=== PATIENT | male | born 1945 | race Caucasian/White ===

== ENCOUNTER → 2016-09-07 | Outpatient (RCR) | payer MEDICARE, OTHER | LOC: M CR 09-05 12:15 | PROVIDERS: ATTEND Internal Medicine Cardiovascular Disease | DX: Z51.89 Encounter for other specified aftercare (principal); Z95.2 Presence of prosthetic heart valve ==

== ENCOUNTER 2016-10-05 12:57 | Outpatient (RCR) | payer MEDICARE, OTHER | END 2016-10-07 | LOC: M CR 12:57 | PROVIDERS: ATTEND Internal Medicine Cardiovascular Disease | DX: Z51.89 Encounter for other specified aftercare (principal); Z95.2 Presence of prosthetic heart valve ==

== ENCOUNTER → 2016-11-07 | Outpatient (RCR) | payer MEDICARE, OTHER | LOC: M CR 10-08 08:28 | PROVIDERS: ATTEND Internal Medicine Cardiovascular Disease | DX: Z51.89 Encounter for other specified aftercare (principal); Z92.29 Personal history of other drug therapy ==

== ENCOUNTER 2016-11-28 13:01 | Outpatient (RCR) | payer MEDICARE, OTHER | END 2016-12-07 | LOC: M CR 13:01 | PROVIDERS: ATTEND Internal Medicine Cardiovascular Disease | DX: Z51.89 Encounter for other specified aftercare (principal); Z95.2 Presence of prosthetic heart valve ==

== ENCOUNTER 2017-05-09 12:00 | Day surgery (SDC) | payer MEDICARE, OTHER ==
[~2017-05-09] VITALS: Ht 168.9 cm; Wt 94.3 kg
[~2017-05-09 12:00] MED LIST: AMLO5TAB2 PO; ASPI81TA85 PO; ATOR1TAB19 PO; LISI-538 PO; MULTTAB50 PO; PROPOFOL 200 MG/20 ML VIAL As Ordered ONE; RANI150C PO; SERT-138 PO; ZYRT10CA PO
[2017-05-09] MEDS ORDERED: CEFAZOLIN SOD 1 GM in APPROPRIATE DILUENT 1 EA IV ONE (12:15)
[2017-05-09] MEDS ORDERED: NS 1,000 ML IV ONE (12:15)
--- NOTE | 2017-05-09 13:08 | ROOR ---
Patient Name: Juan Antonio Luque Procedure Date: 05/09/2017 12:39 PM Date of : 1945 Age: 71 Room: [facility] Gender: Male Note Status: Finalized Procedure: Colonoscopy Indications: High risk colon cancer surveillance: Personal history of colonic polyps Providers: Edgard Mcgowan Jr, MD Referring MD: Kodak Kovacs MD Requesting Provider: Medicines: Propofol per Anesthesia Complications: No immediate complications. Procedure: Pre-Anesthesia Assessment: - Prior to the procedure, a History and Physical was performed, and patient medications and allergies were reviewed. The patient is competent. The risks and benefits of the procedure and the sedation options and risks were discussed with the patient. All questions were answered and informed consent was obtained. Patient identification and proposed procedure were verified by the physician and the nurse in the pre-procedure area and in the procedure room. Mental Status Examination: alert and oriented. Airway Examination: normal oropharyngeal airway and neck mobility. Respiratory Examination: clear to auscultation. CV Examination: normal. ASA Grade Assessment: II - A patient with mild systemic disease. After reviewing the risks and benefits, the patient was deemed in satisfactory condition to undergo the procedure. The anesthesia plan was to use moderate sedation / analgesia (conscious sedation). Immediately prior to administration of medications, the patient was re-assessed for adequacy to receive sedatives. The heart rate, respiratory rate, oxygen saturations, blood pressure, adequacy of pulmonary ventilation, and response to care were monitored throughout the procedure. The physical status of the patient was re-assessed after the procedure. The Colonoscope was introduced through the anus and advanced to the cecum, identified by appendiceal orifice and ileocecal valve. The colonoscopy was performed without difficulty. The patient tolerated the procedure well. The quality of the bowel preparation was adequate and good. Findings: The rectum, recto-sigmoid colon, descending colon, transverse colon, ascending colon, cecum, appendiceal orifice and ileocecal valve appeared normal. A few small and large-mouthed diverticula were found in the sigmoid colon. Impression: - The rectum, recto-sigmoid colon, descending colon, transverse colon, ascending colon, cecum, appendiceal orifice and ileocecal valve are normal. - Diverticulosis in the sigmoid colon. - No specimens collected. Recommendation: - Discharge patient to home (ambulatory). - Repeat colonoscopy in 5-10 years for screening purposes. Edgard Mcgowan MD Edgard Mcgowan Jr, MD 05/09/2017 1:07:56 PM This report has been signed electronically. Number of Addenda: 0 Note Initiated On: 05/09/2017 12:39 PM Estimated Blood Loss: Estimated blood loss: none.
[2017-05-09 13:37] VITALS: BP 135/91
== END 2017-05-09 13:38 | disposition home or self-care (01) ==
LOC: M OPP 12:00
PROVIDERS: ATTEND Surgery
DX: Z12.11 Encounter for screening for malignant neoplasm of colon (principal); K57.30 Diverticulosis of large intestine without perforation or abscess without bleeding; Z86.010 Personal history of colon polyps; I10 Essential (primary) hypertension; E78.00 Pure hypercholesterolemia, unspecified; F41.9 Anxiety disorder, unspecified; F32.9 Major depressive disorder, single episode, unspecified; K21.9 Gastro-esophageal reflux disease without esophagitis; M19.90 Unspecified osteoarthritis, unspecified site; K44.9 Diaphragmatic hernia without obstruction or gangrene; G47.33 Obstructive sleep apnea (adult) (pediatric); Z79.82 Long term (current) use of aspirin; Z79.899 Other long term (current) drug therapy; Z95.4 Presence of other heart-valve replacement

== ENCOUNTER → 2021-01-17 | Outpatient (REF) | payer MEDICARE, OTHER ==
[~2021-01-17] MED LIST changes: +AMLO1TAB24 PO; -AMLO5TAB2 PO; -ASPI81TA85 PO; +ASPI81TA86 PO; -LISI-538 PO; +LISI20TA33 PO; -PROPOFOL 200 MG/20 ML VIAL As Ordered ONE
[2021-01-17 12:50] LABS: C REACTIVE PROTEIN QUANTITATIV < 0.30 MG/DL (0.00-0.30); RHEUMATOID FACTOR QUANT < 10.0 IU/ML (<15.0)
[2021-01-17 13:01] LABS: FOLATE 10.7 NG/ML; VITAMIN B12 LEVEL 372 PG/ML
[2021-01-18 12:08] LABS: ANTINUCLEAR ANTIBODIES DIRECT Negative (Negative)
== END ==
LOC: M LAB REF 11:03
PROVIDERS: ATTEND Family Medicine
DX: R41.3 Other amnesia (principal); M25.512 Pain in left shoulder

== ENCOUNTER 2022-11-29 08:18 | Day surgery (SDC) | payer MEDICARE ==
[~2022-11-29] VITALS: Ht 175.3 cm; Wt 97.5 kg
[~2022-11-29 08:18] MED LIST changes: +ASPI81TA26 PO; +FAMO10TA50 PO; +NS 1,000 ML IV ONE; +ZOLO100T PO
[2022-11-29] MEDS ORDERED: propofoL 500 MG/50 ML VIAL As Ordered ONE (09:12)
[2022-11-29] MEDS ORDERED: LIDOCAINE 2% 100MG/5ML SDV (FOR ANES.) As Ordered ONE (09:12)
[2022-11-29 09:30] VITALS: TEMP 97.6
[2022-11-29 09:45] VITALS: BP 104/66; O2SAT 96
== END 2022-11-29 09:53 | disposition home or self-care (01) ==
LOC: M OPP 08:18
PROVIDERS: ATTEND Surgery
DX: Z12.11 Encounter for screening for malignant neoplasm of colon (principal); Z86.010 Personal history of colon polyps; D12.6 Benign neoplasm of colon, unspecified; K51.40 Inflammatory polyps of colon without complications; K57.30 Diverticulosis of large intestine without perforation or abscess without bleeding; G47.33 Obstructive sleep apnea (adult) (pediatric); Z99.89 Dependence on other enabling machines and devices; Z79.02 Long term (current) use of antithrombotics/antiplatelets; Z79.82 Long term (current) use of aspirin; Z79.899 Other long term (current) drug therapy

== ENCOUNTER → 2023-10-10 | Outpatient (CLI) | payer MEDICARE, OTHER ==
[~2023-10-10] MED LIST changes: -NS 1,000 ML IV ONE
== END ==
LOC: M PLAIMG 11:37
PROVIDERS: ATTEND Family Medicine
DX: I35.8 Other nonrheumatic aortic valve disorders (principal)